=== PATIENT | male | born 1950 | race African-American/Black ===

== ENCOUNTER → 2018-06-28 | Outpatient (CLI) | payer MEDICARE | END | disposition home or self-care (01) | LOC: RAH 10:48 | PROVIDERS: ATTEND Internal Medicine | DX: I73.9 Peripheral vascular disease, unspecified (principal) | CPT/HCPCS: 93925 ==

== ENCOUNTER → 2018-09-29 | Outpatient (CLI) | payer MEDICARE ==
[~2018-09-29] MED LIST: IOHEXOL 350 MG/ML 100ML INFUS..BTL IV ONE; IOHEXOL-350 50ML VIAL IV ONE
== END | disposition home or self-care (01) ==
LOC: RAH 08:16
PROVIDERS: ATTEND Internal Medicine Cardiovascular Disease
DX: I70.293 Other atherosclerosis of native arteries of extremities, bilateral legs (principal); N28.1 Cyst of kidney, acquired
CPT/HCPCS: 75635; Q9967 ×2

== ENCOUNTER 2018-12-08 05:56 | Day surgery (SDC) | payer MEDICARE ==
[2018-12-07 11:06] VITALS: BP 155/74
[2018-12-07 11:08] LABS: BASOPHILS % (AUTO) 0.9 % (0.0-5.0); EOSINOPHILS % (AUTO) 3.1 % (0.0-8.0); HEMATOCRIT 41.3 % (42-54); LYMPHOCYTES % (AUTO) 19.6 % (21.0-51.0); MEAN CORPUSCULAR HEMOGLOBIN 28.5 pg (27.0-33.0); MEAN CORPUSCULAR VOLUME 86.6 fL (79-99); MONOCYTES % (AUTO) 10.2 % (3.0-13.0); NEUTROPHILS % (AUTO) 66.2 % (40.0-77.0); PLATELET COUNT (AUTO) 273 K/uL (130-400); RED BLOOD CELL COUNT(AUTO) 4.77 MIL/uL (4.50-6.20); RED CELL DISTRIBUTION WIDTH 14.6 % (11.0-15.5); WHITE BLOOD COUNT (AUTO) 6.6 K/uL (4.8-10.8)
[2018-12-07 11:15] LABS: CREATININE 1.3 mg/dL (0.5-1.5); POTASSIUM 4.2 mmol/L (3.5-5.1)
[2018-12-07 11:29] LABS: INR 0.93 (0.85-1.15); PARTIAL THROMBOPLASTIN TIME 27.9 SEC (26.3-35.5); PROTHROMBIN TIME 9.8 SEC (9.6-11.6)
[2018-12-07 11:30] LABS: APPEARANCE,URINE Clear (CLEAR); BILIRUBIN,URINE Negative (NEGATIVE); COLOR,URINE Yellow (YELLOW); GLUCOSE, URINE (UA) Negative (NEGATIVE); KETONES,URINE Negative (NEGATIVE); LEUKOCYTE ESTERASE ,URINE Negative (NEGATIVE); NITRATE,URINE Negative (NEGATIVE); OCCULT BLOOD,URINE Trace (NEGATIVE); PROTEIN,URINE POS 2+ mg/dL (NEGATIVE); UROBILINOGEN,URINE 0.2 mg/dL (0.2-1.0)
[2018-12-07 12:06] LABS: BACTERIA,URINE None Seen /HPF (None Seen); RBC,URINE 0-1 /HPF (0-1); SQUAMOUS EPITHELIAL CELL,UR 0-2 /HPF (0-2); WBC,URINE None Seen /HPF (0-1)
--- NOTE | 2018-12-07 13:01 | NUR ---
LABS ABNORMAL LABS REPORTED TO Kemi WATTERS, NO FURTHER ORDERS GIVEN
[~2018-12-08] VITALS: Ht 180.3 cm; Wt 105.6 kg
[2018-12-08] VITALS (20 sets, daily range): BP systolic 141–161; BP diastolic 65–78
[~2018-12-08 05:56] MED LIST changes: +AMLO10TA7 PO; +ASPI-1026 PO; +CARV25TA PO; +CHLO25TA3 PO; +CYAN-35 PO; +GLIP2.5T17 PO; -IOHEXOL 350 MG/ML 100ML INFUS..BTL IV ONE; -IOHEXOL-350 50ML VIAL IV ONE; +LISI40TA4 PO; +LOVA20TA3 PO; +METF-446 PO; +NIAC1CAP PO
[2018-12-08] MEDS ORDERED: SODIUM CHLORIDE 0.9% 1000ML 1,000 ML IV ONE (06:02)
[2018-12-08] MEDS ORDERED: FOLI1TAB85 PO (06:48)
[2018-12-08] MEDS ORDERED: SODIUM CHLORIDE 0.9% 1000ML 1,000 ML IV SCH ×2 (08:00→11:06)
[2018-12-08] MEDS ORDERED: HEPARIN SODIUM 1000UNIT/ML 10ML VIAL ONE (08:57)
[2018-12-08] MEDS ORDERED: NITROGLYCERIN 5 MG/ML 10 ML VIAL IV ONE (08:57)
[2018-12-08] MEDS ORDERED: SODIUM BICARB 50MEQ 50ML VIAL ONE (08:57)
[2018-12-08] MEDS ORDERED: MEPERIDINE-PF 25 MG/ML SYG ONE (08:57)
[2018-12-08] MEDS ORDERED: MIDAZOLAM HCL 1 MG/ML 2ML VIAL ONE (08:57)
[2018-12-08] MEDS ORDERED: LIDOCAINE HCL 2% 20ML ONE (08:58)
[2018-12-08] MEDS ORDERED: IODIXANOL 320 MG/ML 100 ML VIAL ONE (08:58)
--- NOTE | 2018-12-08 09:20 | NUR ---
procedure pt taken to medical laboratory specialist via bed for scheduled procedure. sister at bedside
[2018-12-08] MEDS ORDERED: CLOPIDOGREL BISULFATE 300 MG TAB ONE (10:54)
[2018-12-08] MEDS ORDERED: HYDRALAZINE HCL 20 MG/ML VIAL ONE (11:13)
[2018-12-08] MEDS ORDERED: DEXTROSE 50%-WATER 50 ML DISP.SYRIN IV PRN (11:15)
[2018-12-08] MEDS ORDERED: GLUCAGON 1MG KIT 1 MG ML IM PRN (11:15)
[2018-12-08] MEDS ORDERED: HYDRALAZINE HCL 20 MG/ML VIAL IV PRN (11:15)
[2018-12-08] MEDS: INSULIN HUMULIN R 100 UNIT/ML 3ML SQ SCH ×2 (11:30→16:30)
--- NOTE | 2018-12-08 11:35 | NUR ---
post received pt from [employer] , s/p abd aortogram , [address] to right brachial[address] see post cath assessment, pt awake and alert in bed, no distress noted. pt instructed to keep bedrest and to keep right arm straight at all times. plan of care discuss with patient/ family
[2018-12-08] MEDS ORDERED: ATROPINE SULFATE 0.1 MG/ML 10 ML SYG IVP ONE (13:32)
--- NOTE | 2018-12-08 14:00 | NUR ---
cath hemostasis achieved at this time after removal of right brachial sheath. pressured dressing applied per md orders. no bleeding or hematoma to right brachial.
--- NOTE | 2018-12-08 18:00 | NUR ---
dc dc instructions given to pt/pts sister with rx, instructed on new med regimen, to f/u with dr. kady ch . right brachial with dstat dressing dry and intact, no bleeding or hematoma to site. pt denies any pain or discomforts.
--- NOTE | 2018-12-08 18:05 | NUR ---
dc pt dc home via wc,no distress noted. denied any pain or discomforts. accompanied by sister
== END 2018-12-08 18:05 | disposition home or self-care (01) ==
LOC: DAH 05:56
PROVIDERS: ATTEND Internal Medicine Cardiovascular Disease
DX: I70.213 Atherosclerosis of native arteries of extremities with intermittent claudication, bilateral legs (principal); I70.0 Atherosclerosis of aorta; I70.1 Atherosclerosis of renal artery; I10 Essential (primary) hypertension; E78.5 Hyperlipidemia, unspecified; E11.9 Type 2 diabetes mellitus without complications; Z79.84 Long term (current) use of oral hypoglycemic drugs; Z79.01 Long term (current) use of anticoagulants; Z79.82 Long term (current) use of aspirin; Z79.899 Other long term (current) drug therapy; Z87.891 Personal history of nicotine dependence; Z82.49 Family history of ischemic heart disease and other diseases of the circulatory system; Z82.3 Family history of stroke
CPT/HCPCS: 36415 ×2; 37221; 71045; 75625; 75716; 80048; 81001; 82948 ×2; 85025; 85610; 85730 ×2; 93005; A4215; A4216; A4221; A4222; A4223 ×3; A4606; C1725; C1769; C1874; C1887; C1893; C1894 ×2; J0360 ×2; J1644 ×2; J3490 ×3; J7030; Q9967; J0461; J2175; J2250

== ENCOUNTER 2019-09-08 11:00 | Inpatient (IN) | payer MEDICARE ==
[~2019-09-08] VITALS: Ht 181.6 cm; Wt 104.4 kg
[2019-09-08 09:22] VITALS: BP 135/66
[~2019-09-08 11:00] MED LIST changes: +AMLO-258 PO; -AMLO10TA7 PO; -ASPI-1026 PO; +FOLI1TAB85 PO
[2019-09-08 12:39] LABS: BASOPHILS % (AUTO) 0.5 % (0.0-5.0); EOSINOPHILS % (AUTO) 2.5 % (0.0-8.0); HEMATOCRIT 42.8 % (42-54); LYMPHOCYTES % (AUTO) 20.5 % (21.0-51.0); MEAN CORPUSCULAR HEMOGLOBIN 27.9 pg (27.0-33.0); MEAN CORPUSCULAR HGB CONC 31.8 g/dL (32.0-36.0); MEAN CORPUSCULAR VOLUME 87.7 fL (79-99); MONOCYTES % (AUTO) 10.4 % (3.0-13.0); NEUTROPHILS % (AUTO) 65.8 % (40.0-77.0); PLATELET COUNT (AUTO) 300 K/uL (130-400); RED BLOOD CELL COUNT(AUTO) 4.88 MIL/uL (4.50-6.20); WHITE BLOOD COUNT (AUTO) 7.6 K/uL (4.8-10.8)
[2019-09-08 12:53] LABS: ALBUMIN 3.4 g/dL (3.5-5.0); BILIRUBIN,TOTAL 0.4 mg/dL (0.2-1.0); CREATININE 1.9 mg/dL (0.5-1.5); INR 0.92 (0.85-1.15); PARTIAL THROMBOPLASTIN TIME 27.2 SEC (26.3-35.5); POTASSIUM 4.6 mmol/L (3.5-5.1); TOTAL PROTEIN, SERUM 7.3 g/dL (6.0-8.3)
[2019-09-08 12:55] LABS: HEMOGLOBIN A1C 6.7 % (4.0-6.0)
--- NOTE | 2019-09-09 10:50 | NUR ---
RE: ABNORMAL LABS REPORTED ABNORMAL LABS TO TANGELA MANTILLA RN (HGB 14/HCT 42.8, BUN 45, CREAT 1.9) NO NEW ORDERS RECEIVED. MAY PROCEED WITH SURGERY.
[2019-09-09] MEDS ORDERED: AEC81 PO (15:02)
[2019-09-09] MEDS ORDERED: CLOP75TA32 PO (15:02)
[2019-09-09] MEDS ORDERED: CHOL100046 PO (15:04)
[2019-09-12] VITALS (24 sets, daily range): BP systolic 96–158; BP diastolic 61–94
[2019-09-12] MEDS: CEFUROXIME SODIUM 1.5 GM VIAL IVP SCH ×2 (06:00→11:25)
[2019-09-12] MEDS ORDERED: SODIUM CHLORIDE 0.9% 1000ML 1,000 ML IV ONE (08:35)
[2019-09-12] MEDS ORDERED: ROCURONIUM 10MG/1ML SYR 10 MG/ML ML ONE ×2 (11:06→12:20)
[2019-09-12] MEDS ORDERED: LIDOCAINE PF 2% 5ML ABBOJECT ONE (11:06)
[2019-09-12] MEDS ORDERED: FENTANYL CITRATE PF 50 MCG/1 ML 5ML AMP IV ONE (11:06)
[2019-09-12] MEDS ORDERED: PROPOFOL 10 MG/ML 20ML VIAL IV ONE (11:06)
[2019-09-12] MEDS ORDERED: PAPAVERINE HCL 30 MG/ML 2ML VIAL ONE (11:14)
[2019-09-12] MEDS ORDERED: CEFAZOLIN SODIUM 1 GM VIAL ONE (11:15)
[2019-09-12] MEDS ORDERED: EPHEDRINE SULFATE 50 MG/ML AMPULE ONE (11:35)
[2019-09-12] MEDS ORDERED: GLYCOPYRROLATE 1 MG/5 ML SYRINGE ONE (11:36)
[2019-09-12] MEDS ORDERED: DEXAMETHASONE SOD PHOSPHATE 10MG/ML 1ML VIAL ONE (11:36)
[2019-09-12] MEDS ORDERED: NEOSTIGMINE 5MG/5ML SYR IV ONE (11:37)
[2019-09-12] MEDS ORDERED: ONDANSETRON HCL 4 MG/2 ML VIAL ONE (11:37)
[2019-09-12] MEDS ORDERED: HETASTARCH IN 0.9 % NACL 500 ML IV ONE (12:05)
[2019-09-12] MEDS ORDERED: HEPARIN SODIUM 1000UNIT/ML 10ML VIAL ONE (12:25)
[2019-09-12] MEDS ORDERED: ACETAMINOPHEN 325 MG TAB PO PRN (13:15)
[2019-09-12] MEDS ORDERED: TRAMADOL HCL 50 MG TABLET PO PRN (13:15)
[2019-09-12] MEDS ORDERED: MEPERIDINE-PF 25 MG/ML SYG ONE ×2 (13:43→13:55)
--- NOTE | 2019-09-12 14:30 | NUR ---
POST PROCEDURE RECEIVED PT FROM PACU, IN SEMI BELL'S POSITION, A&OX3, CALM COOPERATIVE AND DOES NOT APPEAR TO BE IN ANY DISTRESS BUT DOES C/O INCISIONAL DISCOMFORT, DRESSINGS TO LEFT THIGH AND CALF, DRY AND INTACT, PULSES BY DOPPLER. LLE ELEVATED WITH 3 PILLOWS PER MD ORDER, CALL LIGHT WITHIN REACH,
[2019-09-12] MEDS ORDERED: TRAMADOL HCL 50 MG TABLET ONE (15:18)
[2019-09-12] MEDS: TRAMADOL HCL 50 MG TABLET PO PRN ×3 (15:23→22:15)
[2019-09-12] MEDS ORDERED: METFORMIN HCL 500 MG TABLET PO SCH (15:45)
[2019-09-12] MEDS: CEFAZOLIN SODIUM 1 GM VIAL IVP SCH (19:55)
[2019-09-12] MEDS: SIMVASTATIN 20 MG TABLET PO SCH (19:55)
[2019-09-12] MEDS: CARVEDILOL 25 MG TABLET PO SCH (19:56)
[2019-09-13 03:00] VITALS: BP 128/70
[2019-09-13 03:46] LABS: HEMATOCRIT 39.5 % (42-54); MEAN CORPUSCULAR HEMOGLOBIN 27.2 pg (27.0-33.0); MEAN CORPUSCULAR HGB CONC 31.4 g/dL (32.0-36.0); MEAN CORPUSCULAR VOLUME 86.6 fL (79-99); RED BLOOD CELL COUNT(AUTO) 4.56 MIL/uL (4.50-6.20); RED CELL DISTRIBUTION WIDTH 13.8 % (11.0-15.5); WHITE BLOOD COUNT (AUTO) 9.5 K/uL (4.8-10.8)
[2019-09-13 03:59] LABS: CREATININE 1.7 mg/dL (0.5-1.5); POTASSIUM 4.4 mmol/L (3.5-5.1)
[2019-09-13] MEDS: CEFAZOLIN SODIUM 1 GM VIAL IVP SCH ×2 (04:09→12:00)
[2019-09-13] MEDS: CEFUROXIME SODIUM 1.5 GM VIAL IVP SCH (05:10)
--- NOTE | 2019-09-13 07:30 | NUR ---
ASSESSMENT ENCOUNTERED PT A&OX3, CALM COOPERATIVE AND DOES NOT APPEAR TO BE IN ANY DISTRESS NOR ANY NEURO DEFICIT PRESENT. PT DENIES PAIN, SOB, NAUSEA. DP/PT PULSES BY DOPPLER. PT IS ABLE TO TOLERATE FOODS, FLUIDS AND MEDICATION WITH NO THROAT CLEARING OR COUGH. LLE DRESSINGS DRY AND INTACT. CALL LIGHT WITHIN REACH.
[2019-09-13 08:07] VITALS: BP 131/78
[2019-09-13] MEDS: CYANOCOBALAMIN (VITAMIN B-12) 1,000 MCG TABLET PO SCH (08:24)
[2019-09-13] MEDS: ASPIRIN 81 MG EC TAB PO SCH (08:25)
[2019-09-13] MEDS: LISINOPRIL 40 MG TABLET PO SCH (08:25)
[2019-09-13] MEDS: GLIPIZIDE XL 2.5MG TAB PO SCH (08:25)
[2019-09-13] MEDS: CLOPIDOGREL BISULFATE 75 MG TAB PO SCH (08:25)
[2019-09-13] MEDS: AMLODIPINE BESYLATE 5 MG TAB PO SCH (08:25)
[2019-09-13] MEDS: VITAMIN B COMPLEX 1 CAPSULE PO SCH (08:25)
[2019-09-13] MEDS: HYDROCHLOROTHIAZIDE 25 MG TABLET PO SCH (08:26)
[2019-09-13] MEDS: CARVEDILOL 25 MG TABLET PO SCH ×2 (08:27→20:14)
[2019-09-13] MEDS: HOME MEDICATION 1 EACH PO SCH (09:00)
[2019-09-13] MEDS: ***HM*** (Cholecalciferol (Vitamin D3) (Vitamin D3) 25 MCG) PO SCH (09:00)
[2019-09-13 11:40] VITALS: BP 137/70
[2019-09-13] MEDS ORDERED: CEFAZOLIN SODIUM 1 GM VIAL ONE (13:13)
--- NOTE | 2019-09-13 17:08 | NUR ---
CM NOTE/IA MEET WITH PATIENT IN ROOM. PER PATIENT, LIVES WITH SON, ARGELIA, WHO IS STAYING WITH FAMILY SINCE PATIENT IS AT [facility]OSPITAL INPATIENT SURGERY. INDEPENDENT WITH ADLS AND HAS PROVIDER 2HR PER DAY MON - SUN FOR ASSISTANCE NEEDED AROUND HOUSE, NO DME IN USE AND FEELS SAFE TO RETURN HOME ONCE STABLE. Addendum: 09/13/19 at 1710 by JULIANNA CHACNO RN CM Amended: Links added.
[2019-09-13 17:09] VITALS: BP 164/82
[2019-09-13 20:12] VITALS: BP 144/90
[2019-09-13] MEDS: TRAMADOL HCL 50 MG TABLET PO PRN (20:14)
[2019-09-13] MEDS: SIMVASTATIN 20 MG TABLET PO SCH (20:14)
[2019-09-14 00:05] VITALS: BP 129/70
[2019-09-14 04:03] VITALS: BP 143/74
[2019-09-14] MEDS: HYDROCHLOROTHIAZIDE 25 MG TABLET PO SCH (07:15)
[2019-09-14] MEDS: ASPIRIN 81 MG EC TAB PO SCH (07:18)
[2019-09-14] MEDS: CARVEDILOL 25 MG TABLET PO SCH (07:19)
[2019-09-14] MEDS: AMLODIPINE BESYLATE 5 MG TAB PO SCH (07:19)
[2019-09-14] MEDS: LISINOPRIL 40 MG TABLET PO SCH (07:19)
[2019-09-14] MEDS: CYANOCOBALAMIN (VITAMIN B-12) 1,000 MCG TABLET PO SCH (07:19)
[2019-09-14] MEDS: GLIPIZIDE XL 2.5MG TAB PO SCH (07:19)
[2019-09-14] MEDS: VITAMIN B COMPLEX 1 CAPSULE PO SCH (07:20)
[2019-09-14] MEDS: CLOPIDOGREL BISULFATE 75 MG TAB PO SCH (07:20)
[2019-09-14] MEDS: ***HM*** (Cholecalciferol (Vitamin D3) (Vitamin D3) 25 MCG) PO SCH (07:21)
[2019-09-14] MEDS: HOME MEDICATION 1 EACH PO SCH (07:21)
[2019-09-14 08:00] VITALS: BP 124/61
[2019-09-14] MEDS ORDERED: METFORMIN HCL 500 MG TABLET PO SCH (08:00)
--- NOTE | 2019-09-14 08:00 | NUR ---
ASSESSMENT PT IS AAOX3 DENIES CP DENIES SOB DENIES NV NO COMPLAINTS. RESTING IN BED. LEFT LEG DRESSING CLEAN DRY AND INTACT. DENIES PAIN OR CRAMPING TO LEFT LEG, WEAK PALPABLE PULSES NOTED TO LEFT LEG. CALL LIGHT WITHIN REACH.
[2019-09-14] MEDS ORDERED: CEPH500B PO (11:05)
[2019-09-14] MEDS ORDERED: TRAM50TA4 PO (11:05)
[2019-09-14 12:00] VITALS: BP 122/64
--- NOTE | 2019-09-14 12:54 | NUR ---
DISCHARGE DC INSTRUCTIONS GIVEN TO PATIENT AGREE TO FOLLOW ALL INSTRUCTIONS, AGREES TO KEEP LEG ELEVATED ON PILLOWS WHILE LAYING DOWN. AGREES TO FOLLOW UP WITH DR CAO AND Kemi MERRITT PAC INSTRUCTED, AGREES TO TAKE MEDS ORDERED. ALL QUESTIONS ANSWERED, PIV REMOVED CATH TIP INTACT TELE PACK REMOVED. ALL BELONGINGS GATHERED. AWAITING RIDE.
== END 2019-09-14 12:00 | disposition home or self-care (01) | DRG 254 ==
LOC: EDBD 11:00 → EDSTATUS 11:00 → DAHIP 09-12 09:49 → 4AH 09-12 14:16
PROVIDERS: ADMIT Thoracic Surgery (Cardiothoracic Vascular Surgery); ATTEND Thoracic Surgery (Cardiothoracic Vascular Surgery)
PROC: 041L0KL Bypass Left Femoral Artery to Popliteal Artery with Nonautologous Tissue Substitute, Open Approach (ICD-10-PCS; principal; 2019-09-12 11:25)
DX: I77.9 Disorder of arteries and arterioles, unspecified (principal); I70.222 Atherosclerosis of native arteries of extremities with rest pain, left leg; E78.5 Hyperlipidemia, unspecified; E11.51 Type 2 diabetes mellitus with diabetic peripheral angiopathy without gangrene; I10 Essential (primary) hypertension; K21.9 Gastro-esophageal reflux disease without esophagitis; M19.90 Unspecified osteoarthritis, unspecified site; I25.10 Atherosclerotic heart disease of native coronary artery without angina pectoris; Z79.899 Other long term (current) drug therapy; Z79.82 Long term (current) use of aspirin; Z95.820 Peripheral vascular angioplasty status with implants and grafts; Z82.49 Family history of ischemic heart disease and other diseases of the circulatory system; Z87.891 Personal history of nicotine dependence
CPT/HCPCS: 36415; 71046; 80048; 80053; 82948; 83036; 85025; 85027; 85610; 85730; 86850; 86900; 86901; 93005; 97039; A4344; G0378; J0690; J0697; J1100; J1644; J2001; J2175; J2405; J2440; J2704; J2710; J3010; J3490; J7030; J7040

== ENCOUNTER 2019-09-14 | Emergency (ER) | payer MEDICARE | END 2019-09-15 00:25 | disposition home or self-care (01) | DX: S81.802A Unspecified open wound, left lower leg, initial encounter (principal); Z48.01 Encounter for change or removal of surgical wound dressing; I10 Essential (primary) hypertension; E11.9 Type 2 diabetes mellitus without complications; E78.00 Pure hypercholesterolemia, unspecified; Z95.1 Presence of aortocoronary bypass graft; Z87.891 Personal history of nicotine dependence; X58.XXXA Exposure to other specified factors, initial encounter; Y93.89 Activity, other specified; Y92.89 Other specified places as the place of occurrence of the external cause; Y99.8 Other external cause status ==

== ENCOUNTER → 2021-12-23 | Outpatient (CLI) | payer OTHER, MEDICARE ==
[~2021-12-23] MED LIST changes: +AEC81 PO; +CEPH500B PO; +CHOL100046 PO; +CLOP75TA32 PO; -LISI40TA4 PO; +LISI40TA9 PO; +TRAM50TA4 PO
== END | disposition home or self-care (01) ==
LOC: OIH 08:11
PROVIDERS: ATTEND Internal Medicine Cardiovascular Disease
DX: I35.8 Other nonrheumatic aortic valve disorders (principal); I11.9 Hypertensive heart disease without heart failure; E11.9 Type 2 diabetes mellitus without complications; E78.5 Hyperlipidemia, unspecified; F17.200 Nicotine dependence, unspecified, uncomplicated
CPT/HCPCS: 93306

== ENCOUNTER → 2022-01-02 | Outpatient (CLI) | payer OTHER | END | disposition home or self-care (01) | LOC: RAH 12:53 | PROVIDERS: ATTEND Internal Medicine Cardiovascular Disease | DX: Z13.6 Encounter for screening for cardiovascular disorders (principal); I51.5 Myocardial degeneration | CPT/HCPCS: 75571 ==

== ENCOUNTER 2022-02-10 08:37 | Day surgery (SDC) | payer OTHER, MEDICARE ==
[2022-02-07 12:46] LABS: BASOPHILS % (AUTO) 0.7 % (0.0-5.0); EOSINOPHILS % (AUTO) 3.3 % (0.0-8.0); HEMATOCRIT 41.5 % (42-54); LYMPHOCYTES % (AUTO) 18.8 % (21.0-51.0); MEAN CORPUSCULAR HEMOGLOBIN 27.4 pg (27.0-33.0); MEAN CORPUSCULAR HGB CONC 31.8 g/dL (32.0-36.0); MEAN CORPUSCULAR VOLUME 86.3 fL (79-99); MONOCYTES % (AUTO) 11.7 % (3.0-13.0); NEUTROPHILS % (AUTO) 65.2 % (40.0-77.0); PLATELET COUNT (AUTO) 279 K/uL (130-400); RED BLOOD CELL COUNT(AUTO) 4.81 MIL/uL (4.50-6.20); RED CELL DISTRIBUTION WIDTH 12.9 % (11.0-15.5); WHITE BLOOD COUNT (AUTO) 6.8 K/uL (4.8-10.8)
[2022-02-07 12:56] LABS: INR 0.93 (0.85-1.15); PROTHROMBIN TIME 10.1 SEC (9.6-11.6)
[2022-02-07 12:57] LABS: CREATININE 1.5 mg/dL (0.5-1.5); PARTIAL THROMBOPLASTIN TIME 29.1 SEC (26.3-35.5); POTASSIUM 3.6 mmol/L (3.5-5.1)
[2022-02-07 13:04] LABS: APPEARANCE,URINE CLEAR (CLEAR); BILIRUBIN,URINE NEGATIVE (NEGATIVE); COLOR,URINE LIGHT-YELLOW (YELLOW); GLUCOSE, URINE (UA) 50 mg/dL (NEGATIVE); KETONES,URINE NEGATIVE (NEGATIVE); LEUKOCYTE ESTERASE ,URINE NEGATIVE Leu/uL (NEGATIVE); NITRATE,URINE NEGATIVE (NEGATIVE); OCCULT BLOOD,URINE SMALL (NEGATIVE); PROTEIN,URINE 300 mg/dL (NEGATIVE); UROBILINOGEN,URINE 0.2 mg/dL (0.2-1.0)
[2022-02-07 13:23] LABS: B-TYPE NATRIURETIC PEPTIDE 84 pg/mL (0-100)
[2022-02-07 13:40] LABS: BACTERIA,URINE RARE /HPF (None Seen); MUCUS,URINE RARE LPF (None Seen); RBC,URINE 0-1 /HPF (0-1); SQUAMOUS EPITHELIAL CELL,UR RARE /HPF (0-2); WBC,URINE 0-1 /HPF (0-1)
[2022-02-07 14:06] VITALS: BP_SYST 170; BP_SYST 181; BP_DIAS 94
[~2022-02-10] VITALS: Ht 180.3 cm; Wt 111.0 kg
[2022-02-10] VITALS (13 sets, daily range): BP systolic 149–178; BP diastolic 76–90
[~2022-02-10 08:37] MED LIST changes: +0.9% NACL 500ML IV.SOLN 500 ML IV SCH; +AMYL1CAP63 PO; -CEPH500B PO; -CHLO25TA3 PO; -CHOL100046 PO; +CILO100T3 PO; -CYAN-35 PO; -LISI40TA9 PO; +LOSA25TA41 PO; -METF-446 PO; -TRAM50TA4 PO
[2022-02-10] MEDS ORDERED: 0.9%NACL 1000ML 1,000 ML IV ONE (09:55)
[2022-02-10] MEDS ORDERED: HEPARIN 10,000 UNIT/10ML (1,000 UNIT/ML) VIAL ONE (11:48)
[2022-02-10] MEDS ORDERED: LIDOCAINE HCL 1% 20 ML VIAL ONE (11:48)
[2022-02-10] MEDS ORDERED: IOHEXOL 350 MG/ML 100ML INFUS..BTL IV ONE (11:49)
[2022-02-10] MEDS ORDERED: MIDAZOLAM HCL 1 MG/ML 2ML VIAL ONE ×2 (11:49→12:24)
[2022-02-10] MEDS ORDERED: MEPERIDINE-PF 25 MG/ML SYG ONE ×2 (11:49→12:24)
[2022-02-10] MEDS ORDERED: NICARDIPINE 25MG INJ IV ONE (11:49)
[2022-02-10] MEDS ORDERED: NITROGLYCERIN 50MG VIAL ONE (11:49)
[2022-02-10] MEDS ORDERED: 0.9%NACL 1000ML 1,000 ML IV SCH (13:00)
[2022-02-10] MEDS ORDERED: GLUCAGON 1MG KIT 1 MG ML IM PRN (13:00)
[2022-02-10] MEDS ORDERED: DEXTROSE 50%-WATER 50 ML DISP.SYRIN IV PRN (13:00)
[2022-02-10] MEDS ORDERED: ASPIRIN 81MG CHEW TAB ONE (13:02)
[2022-02-10] MEDS ORDERED: INSULIN HUMULIN R 100 UNIT/ML 3ML SQ SCH (16:30)
== END 2022-02-10 19:00 | disposition home or self-care (01) ==
LOC: DAH 08:37
PROVIDERS: ATTEND Internal Medicine Cardiovascular Disease
DX: I25.119 Atherosclerotic heart disease of native coronary artery with unspecified angina pectoris (principal); I70.0 Atherosclerosis of aorta; E11.22 Type 2 diabetes mellitus with diabetic chronic kidney disease; I13.0 Hypertensive heart and chronic kidney disease with heart failure and stage 1 through stage 4 chronic kidney disease, or unspecified chronic kidney disease; I50.42 Chronic combined systolic (congestive) and diastolic (congestive) heart failure; N18.9 Chronic kidney disease, unspecified; E11.51 Type 2 diabetes mellitus with diabetic peripheral angiopathy without gangrene; E78.5 Hyperlipidemia, unspecified; Z79.01 Long term (current) use of anticoagulants; Z79.899 Other long term (current) drug therapy; Z87.891 Personal history of nicotine dependence; Z82.49 Family history of ischemic heart disease and other diseases of the circulatory system; Z95.5 Presence of coronary angioplasty implant and graft; Z98.890 Other specified postprocedural states; Z79.82 Long term (current) use of aspirin; Z79.84 Long term (current) use of oral hypoglycemic drugs
CPT/HCPCS: 80048; 83880; 85025; 85610; 85730; 81001; 36415; 93005; 93458; 82948 ×2; 93306; 93356; C9600; C1769 ×2; C1887; C1894; C1874; Q9965; J7030; J3490 ×2; J1644 ×2; J2250 ×2; J2175 ×2; Q9967; A4215; A4222; A4221; A4663; A4216; A4606; A4223 ×3; 96360; 96361; 99156; 99157

== ENCOUNTER → 2022-03-24 | Outpatient (CLI) | payer OTHER, MEDICARE ==
[~2022-03-24] MED LIST changes: -0.9% NACL 500ML IV.SOLN 500 ML IV SCH
[2022-03-24 12:45] LABS: BASOPHILS % (AUTO) 0.7 % (0.0-5.0); EOSINOPHILS % (AUTO) 2.6 % (0.0-8.0); LYMPHOCYTES % (AUTO) 17.2 % (21.0-51.0); MEAN CORPUSCULAR HGB CONC 31.4 g/dL (32.0-36.0); MEAN CORPUSCULAR VOLUME 85.8 fL (79-99); MONOCYTES % (AUTO) 10.5 % (3.0-13.0); NEUTROPHILS % (AUTO) 68.5 % (40.0-77.0); PLATELET COUNT (AUTO) 368 K/uL (130-400); RED BLOOD CELL COUNT(AUTO) 5.71 MIL/uL (4.50-6.20); RED CELL DISTRIBUTION WIDTH 14.5 % (11.0-15.5); WHITE BLOOD COUNT (AUTO) 8.1 K/uL (4.8-10.8)
[2022-03-24 13:15] LABS: ALBUMIN 2.8 g/dL (3.5-5.0); CREATININE 1.9 mg/dL (0.5-1.5); POTASSIUM 4.3 mmol/L (3.5-5.1); TOTAL PROTEIN, SERUM 7.5 g/dL (6.0-8.3)
[2022-03-24 13:18] LABS: B-TYPE NATRIURETIC PEPTIDE 40 pg/mL (0-100)
[2022-03-24 14:10] LABS: HEMOGLOBIN A1C 7.5 % (4.0-6.0)
== END | disposition home or self-care (01) ==
LOC: LAB 09:21
PROVIDERS: ATTEND Internal Medicine Cardiovascular Disease
DX: I10 Essential (primary) hypertension (principal); I73.9 Peripheral vascular disease, unspecified; E11.9 Type 2 diabetes mellitus without complications; E78.5 Hyperlipidemia, unspecified; Z79.82 Long term (current) use of aspirin; Z79.84 Long term (current) use of oral hypoglycemic drugs; Z79.899 Other long term (current) drug therapy
CPT/HCPCS: 36415; 80053; 83036; 83880; 85025

== ENCOUNTER → 2022-06-10 | Outpatient (CLI) | payer OTHER, MEDICARE ==
[2022-06-10 13:10] LABS: ALBUMIN 2.6 g/dL (3.5-5.0); CREATININE 1.9 mg/dL (0.5-1.5); POTASSIUM 3.6 mmol/L (3.5-5.1); TOTAL PROTEIN, SERUM 6.5 g/dL (6.0-8.3)
== END | disposition home or self-care (01) ==
LOC: LAB 09:30
PROVIDERS: ATTEND Internal Medicine Cardiovascular Disease
DX: I10 Essential (primary) hypertension (principal)
CPT/HCPCS: 36415; 80053; 80061; 83880

== ENCOUNTER → 2022-10-16 | Outpatient (CLI) | payer OTHER, MEDICARE ==
[2022-10-16 16:48] LABS: CREATININE 2.9 mg/dL (0.5-1.5); MAGNESIUM 1.9 mg/dL (1.80-2.40); POTASSIUM 4.3 mmol/L (3.5-5.1); TOTAL PROTEIN, SERUM 7.4 g/dL (6.0-8.3)
== END | disposition home or self-care (01) ==
LOC: LAB 11:40
PROVIDERS: ATTEND Internal Medicine Cardiovascular Disease
DX: I10 Essential (primary) hypertension (principal); E78.5 Hyperlipidemia, unspecified
CPT/HCPCS: 36415; 80053; 83735; 83880

== ENCOUNTER → 2022-12-29 | Outpatient (CLI) | payer OTHER, MEDICARE ==
[~2022-12-29] VITALS: Ht 177.8 cm; Wt 111.6 kg
[~2022-12-29] MED LIST changes: +APIX5TAB PO; +ASCO500C18 PO; +CHOL100040 PO; +CLON0.1T PO; +DAPA10TA PO; +DILT120C12 PO; +DOCU100C33 PO; +DRON400T7 PO; +FERR-72 PO; +FURO20TA4 PO; +HYDR-4153 PO; +INSLAN SQ; +ISOS30TA92 PO; +OMEP40CA21 PO; +ROSU20TA73 PO; +SUPER B COMPLEX PO; +TELM40TA8 PO
[2022-12-29 09:31] LABS: HEMATOCRIT 41.2 % (42-54); MEAN CORPUSCULAR HEMOGLOBIN 25.2 pg (27.0-33.0); MEAN CORPUSCULAR HGB CONC 29.9 g/dL (32.0-36.0); MEAN CORPUSCULAR VOLUME 84.3 fL (79-99); PLATELET COUNT (AUTO) 282 K/uL (130-400); RED BLOOD CELL COUNT(AUTO) 4.89 MIL/uL (4.50-6.20); RED CELL DISTRIBUTION WIDTH 16.7 % (11.0-15.5); WHITE BLOOD COUNT (AUTO) 7.8 K/uL (4.8-10.8)
[2022-12-29 09:37] LABS: CREATININE 2.8 mg/dL (0.5-1.5); POTASSIUM 3.8 mmol/L (3.5-5.1)
[2022-12-29 09:38] LABS: INR 0.94 (0.85-1.15); PROTHROMBIN TIME 10.9 SEC (9.6-11.6)
[2022-12-29 09:40] LABS: PARTIAL THROMBOPLASTIN TIME 32.6 SEC (26.3-35.5)
[2022-12-29 10:11] VITALS: BP 180/77; PULSE 75; RESP 16
== END | disposition home or self-care (01) ==
LOC: DAH 10:00 → EDSTATUS 12-30 13:10
PROVIDERS: ATTEND Thoracic Surgery (Cardiothoracic Vascular Surgery)
DX: Z01.818 Encounter for other preprocedural examination (principal); I73.9 Peripheral vascular disease, unspecified; I49.1 Atrial premature depolarization; I51.7 Cardiomegaly
CPT/HCPCS: 71045; 80048; 85027; 85610; 85730; 86850; 86900; 86901; 36415; 93005; A6260

== ENCOUNTER 2023-01-21 09:58 | Emergency (ER) | payer OTHER, MEDICARE ==
[~2023-01-21] VITALS: Ht 180.3 cm; Wt 113.4 kg
[~2023-01-21 09:58] MED LIST changes: -AEC81 PO; -AMLO-258 PO; -AMYL1CAP63 PO; -GLIP2.5T17 PO; -LOSA25TA41 PO; -LOVA20TA3 PO; -NIAC1CAP PO
[2023-01-21] MEDS ORDERED: LIDOCAINE HCL 1% 20 ML VIAL ONE (16:51)
[2023-01-21 18:06] VITALS: BP 132/78; PULSE 78; RESP 18; O2SAT 98
== END 2023-01-21 18:08 | disposition home or self-care (01) ==
LOC: EDH 09:58
DX: S81.812A Laceration without foreign body, left lower leg, initial encounter (principal); E11.9 Type 2 diabetes mellitus without complications; E78.00 Pure hypercholesterolemia, unspecified; I10 Essential (primary) hypertension; Z79.01 Long term (current) use of anticoagulants; Z79.02 Long term (current) use of antithrombotics/antiplatelets; Z79.899 Other long term (current) drug therapy; X58.XXXA Exposure to other specified factors, initial encounter; Y93.89 Activity, other specified; Y92.89 Other specified places as the place of occurrence of the external cause; Y99.8 Other external cause status
CPT/HCPCS: 12002; 76882; 93926

== ENCOUNTER 2023-01-23 14:51 | Emergency (ER) | payer OTHER, MEDICARE ==
[~2023-01-23] VITALS: Ht 180.3 cm; Wt 113.4 kg
[2023-01-23 16:05] LABS: BASOPHILS # (AUTO) 0.06 K/uL (0.00-0.20); BASOPHILS % (AUTO) 0.5 % (0.0-5.0); EOSINOPHILS # (AUTO) 0.22 K/uL (0.00-0.70); EOSINOPHILS % (AUTO) 1.7 % (0.0-8.0); HEMATOCRIT 29.4 % (42-54); LYMPHOCYTES # (AUTO) 1.1 K/uL (1.0-4.8); LYMPHOCYTES % (AUTO) 7.9 % (21.0-51.0); MEAN CORPUSCULAR HEMOGLOBIN 25.7 pg (27.0-33.0); MEAN CORPUSCULAR HGB CONC 31.3 g/dL (32.0-36.0); MEAN CORPUSCULAR VOLUME 82.1 fL (79-99); MONOCYTES # (AUTO) 1.4 K/uL (0.1-1.0); MONOCYTES % (AUTO) 10.2 % (3.0-13.0); NEUTROPHILS # (AUTO) 10.5 K/uL (1.8-7.7); NEUTROPHILS % (AUTO) 78.9 % (40.0-77.0); PLATELET COUNT (AUTO) 367 K/uL (130-400); RED BLOOD CELL COUNT(AUTO) 3.58 MIL/uL (4.50-6.20); RED CELL DISTRIBUTION WIDTH 14.4 % (11.0-15.5); WHITE BLOOD COUNT (AUTO) 13.3 K/uL (4.8-10.8)
[2023-01-23 16:25] LABS: INR 0.99 (0.85-1.15); PROTHROMBIN TIME 11.5 SEC (9.6-11.6)
[2023-01-23 16:27] LABS: PARTIAL THROMBOPLASTIN TIME 36.5 SEC (26.3-35.5)
[2023-01-23 16:28] LABS: POTASSIUM 3.3 mmol/L (3.5-5.1)
[2023-01-23 16:30] LABS: ALBUMIN 2.3 g/dL (3.5-5.0); BILIRUBIN,TOTAL 0.5 mg/dL (0.2-1.0); TOTAL PROTEIN, SERUM 7.5 g/dL (6.0-8.3)
[2023-01-23] MEDS ORDERED: 0.9% NACL 500ML IV.SOLN 500 ML IV ONE (16:30)
[2023-01-23 17:28] VITALS: BP 138/78; PULSE 87; RESP 20; O2SAT 98
[2023-01-23] MEDS ORDERED: OCTYL 2-CYANOACRYLATE 1 EACH TP ONE (17:32)
[2023-01-23] MEDS ORDERED: ONDA4TAB10 PO (17:52)
[2023-01-23] MEDS ORDERED: ACET-2079 PO (17:52)
[2023-01-23] MEDS ORDERED: CEPH500B PO (17:52)
[2023-01-23] MEDS ORDERED: ONDANSETRON 4MG INJ IVP ONE (18:00)
[2023-01-23] MEDS ORDERED: CEFTRIAXONE 1G VIAL IVPB ONE (18:00)
[2023-01-23] MEDS ORDERED: MORPHINE 4 MG SYG IVP ONE (18:00)
[2023-01-24] MEDS ORDERED: AMOX1TAB16 PO (11:25)
== END 2023-01-23 18:33 | disposition home or self-care (01) ==
LOC: EDH 14:51
DX: T81.31XA Disruption of external operation (surgical) wound, not elsewhere classified, initial encounter (principal); L76.32 Postprocedural hematoma of skin and subcutaneous tissue following other procedure; I10 Essential (primary) hypertension; E11.9 Type 2 diabetes mellitus without complications; E78.00 Pure hypercholesterolemia, unspecified; Z79.899 Other long term (current) drug therapy; Z98.890 Other specified postprocedural states; X58.XXXA Exposure to other specified factors, initial encounter; Y93.89 Activity, other specified; Y92.89 Other specified places as the place of occurrence of the external cause; Y99.8 Other external cause status
CPT/HCPCS: 99285; 96374; 71045; 96375; 84484; 80053; 85025; 85610; 85730; 87040 ×2; 83605; 36415; 76882; 93005; J7040; J0696; J2405; J2270

== ENCOUNTER 2023-01-24 07:26 | Emergency (ER) | payer OTHER, MEDICARE ==
[~2023-01-24] VITALS: Ht 180.3 cm; Wt 113.4 kg
[~2023-01-24 07:26] MED LIST changes: +ACET-2079 PO; +CEPH500B PO; +ONDA4TAB10 PO
[2023-01-24 08:11] LABS: BASOPHILS # (AUTO) 0.06 K/uL (0.00-0.20); BASOPHILS % (AUTO) 0.4 % (0.0-5.0); EOSINOPHILS # (AUTO) 0.25 K/uL (0.00-0.70); EOSINOPHILS % (AUTO) 1.9 % (0.0-8.0); HEMATOCRIT 29.5 % (42-54); IMMATURE GRANULOCYTE ABSOLUTE 0.11 K/uL (0-1); LYMPHOCYTES # (AUTO) 0.9 K/uL (1.0-4.8); LYMPHOCYTES % (AUTO) 6.4 % (21.0-51.0); MEAN CORPUSCULAR HEMOGLOBIN 25.8 pg (27.0-33.0); MEAN CORPUSCULAR HGB CONC 31.5 g/dL (32.0-36.0); MEAN CORPUSCULAR VOLUME 81.7 fL (79-99); MONOCYTES # (AUTO) 1.5 K/uL (0.1-1.0); NEUTROPHILS # (AUTO) 10.6 K/uL (1.8-7.7); NEUTROPHILS % (AUTO) 79.5 % (40.0-77.0); NUCLEATED RED BLOOD CELLS 0.1 % (0.0-0.19); PLATELET COUNT (AUTO) 401 K/uL (130-400); RED BLOOD CELL COUNT(AUTO) 3.61 MIL/uL (4.50-6.20); RED CELL DISTRIBUTION WIDTH 14.3 % (11.0-15.5); WHITE BLOOD COUNT (AUTO) 13.3 K/uL (4.8-10.8)
[2023-01-24 08:56] LABS: POTASSIUM 3.6 mmol/L (3.5-5.1)
[2023-01-24 09:01] LABS: ALBUMIN 2.1 g/dL (3.5-5.0); BILIRUBIN,TOTAL 0.4 mg/dL (0.2-1.0); TOTAL PROTEIN, SERUM 7.1 g/dL (6.0-8.3)
[2023-01-24] MEDS ORDERED: AMOX1TAB16 PO (11:25)
[2023-01-24 11:48] VITALS: BP 142/57; PULSE 87; RESP 18; O2SAT 97
== END 2023-01-24 11:55 | disposition home or self-care (01) ==
LOC: EDH 07:26
DX: S30.1XXA Contusion of abdominal wall, initial encounter (principal); E11.9 Type 2 diabetes mellitus without complications; E78.00 Pure hypercholesterolemia, unspecified; I10 Essential (primary) hypertension; Z79.01 Long term (current) use of anticoagulants; Z79.02 Long term (current) use of antithrombotics/antiplatelets; Z79.899 Other long term (current) drug therapy; X58.XXXA Exposure to other specified factors, initial encounter; Y93.89 Activity, other specified; Y92.89 Other specified places as the place of occurrence of the external cause; Y99.8 Other external cause status
CPT/HCPCS: 36415; 72192; 73700; 76882; 80053; 85025

== ENCOUNTER 2023-02-01 11:37 | Emergency (ER) | payer OTHER, MEDICARE ==
[~2023-02-01 11:37] MED LIST changes: +AMOX1TAB16 PO
[2023-02-01] MEDS ORDERED: LACTATED RINGERS 1000ML IV ONE (11:40)
[2023-02-01] MEDS ORDERED: COAGULATION FACTOR VIIA RECOMB 1 MG VIAL IV SCH (11:50)
[2023-02-01 11:54] LABS: ABG BASE EXCESS -23.3 mmol/L (-2.0-3.0); ABG HCO3 7.6 mmol/L (21.0-28.0); ABG OXYGEN SATURATION 90.4 % (95.0-99.0); ABG PCO2 40 mmHg (35-48); CARBON MONOXIDE 0.3; HHb 9.5; PO2, ARTERIAL BG 94.2 mmHg (83.0-108.0); VENT MODE, BG AMBU BAG (ROOM AIR)
[2023-02-01] MEDS ORDERED: HUMAN PROTHROMBIN COMPLX(PCC) 500 UNIT KIT IV ONE (11:59)
[2023-02-01] MEDS ORDERED: 0.9%NACL 1000ML 1,000 ML IV ONE (12:05)
[2023-02-01] MEDS ORDERED: ROCURONIUM BROMIDE 100 MG in 0.9%NACL 100ML 100 ML IV ONE (12:30)
== END 2023-02-01 14:17 ==
LOC: EDH 11:37
DX: I61.9 Nontraumatic intracerebral hemorrhage, unspecified (principal); E11.9 Type 2 diabetes mellitus without complications; E78.00 Pure hypercholesterolemia, unspecified; I10 Essential (primary) hypertension; Z79.01 Long term (current) use of anticoagulants; Z79.02 Long term (current) use of antithrombotics/antiplatelets; Z79.899 Other long term (current) drug therapy
CPT/HCPCS: 36430; 82435; 82947; 84132; 84295; 82803; 85018; 86850; 86900; 86922; 86901; 83605; 36415; 96374; 99291; 96361; 96375; 92950; 31500; 36600; P9016 ×2; J3490; J7189; C9132